=== PATIENT | male | born 1970 | race Caucasian/White ===

== ENCOUNTER 2017-07-06 09:23 | Day surgery (SDC) | payer OTHER ==
[2017-07-06] MEDS ORDERED: BENZOCAINE UNIT DOSE SPRAY HURRICAINE MM ONE (09:25)
[2017-07-06] MEDS ORDERED: MIDAZOLAM 2 MG/2 ML VIAL IVP ONE ×2 (09:25→11:33)
[2017-07-06] MEDS ORDERED: NS 500 ML IV ONE (09:25)
[2017-07-06] MEDS ORDERED: fentaNYL 100 MCG/2 ML INJ IVP ONE (09:25)
[2017-07-06] MEDS ORDERED: MIDAZOLAM 2 MG/2 ML VIAL ONE (09:32)
[2017-07-06] MEDS ORDERED: fentaNYL 100 MCG/2 ML INJ ONE (09:32)
--- NOTE | 2017-07-06 10:46 | PDHPUP ---
History & Physical Update H&P update statement: This history and physical update is based on an assessment of the patient which was completed after admission or registration (within 24 hours), but prior to the surgery/procedure. H&P update: H&P reviewed & patient examined, no change in patient's condition since H&P completed
--- NOTE | 2017-07-06 10:47 | PDPROPOC ---
Sedation Plan of Care Sedation Plan of Care: vital signs stable, mental status noted, patient educated of risks, benefits, alternatives, patient can tolerate sedation ASA Classification: ASA 1 Planned drugs: fentanyl, midazolam Mallampati Score: Class 2 Mallampati Reference Image: Patient passed 3-3-2 rule?: Yes
--- NOTE | 2017-07-06 10:49 | PDGENHP ---
History & Physical Chief Complaint: MR, TR History of Present Illness: 47 yo M with MV repair several years ago now with MR and worsening TR. Needs ARCHIE for further evaluation Pertinent Past, Social, Family History: see outpatient record Relevant Physical Exam: RRR soft early systolic murmur LLSB and apex Cardiorespiratory Assessment: stable
--- NOTE | 2017-07-09 17:26 | ECHO ---
[email or web address] [address] [address] Main: [phone] Fax: Transesophageal Echocardiography Name: ALMAZ CROWLEY MR#: [id number] Study Date: 07/06/2017 Study Time: 10:52 AM Date of : 1970 Age: 47 year(s) Height: ( ) Weight: ( ) BSA: Gender: Male Examination: ARCHIE Indication: Eval mitral and tricuspid valves Image Quality: Contrast: I.V. dose of agitated saline Requested by: Bev Inman Heart Rate: Rhythm: BP: / Procedure Staff Net Manager: Mckenna Senior Physician: Bev Inman Requesting Provider: ARCHIE Exam Details Patient Consent: Risks, alternatives of procedure explained to patient, informed consent obtained. Patient Fasting: yes Contrast: I.V. dose of agitated saline Conclusions: Normal global systolic LV function. Mildly dilated right ventricle. Normal RV function. An agitated saline study was performed and was negative for intracardiac shunting. No thrombus in left appendage. An annuloplasty ring is noted in the mitral valve position. Mobile structure seen associated with the posterior annulus (viewed in previous study) - This measures 0.3 x 0.6 cm. Probable stitch. Moderate MV prosthesis regurgitation. Moderate tricuspid regurgitation is present. The pulmonary artery pressure is normal. Measurements: Chambers Valvular Assessment AV/MV Valvular Assessment TV/PV Normal Normal Normal Name Value Range Name Value Range Name Value Range Additional Measurements: Patient: ALMAZ CROWLEY Study Date: 07/06/2017 Page 1 of 2 10:52 AM Findings: Left Ventricle: Normal global systolic LV function. Right Ventricle: Mildly dilated right ventricle. Normal RV function. Left Atrium: An agitated saline study was performed and was negative for intracardiac shunting. Left Atrial Appendage: No thrombus in left appendage. Mitral Valve: An annuloplasty ring is noted in the mitral valve position. Mobile structure seen associated with the posterior annulus (viewed in previous study) - This measures 0.3 x 0.6 cm. Probable stitch. Moderate MV prosthesis regurgitation. Aortic Valve: The aortic valve is tri-leaflet. Tricuspid Valve: Moderate tricuspid regurgitation is present. The pulmonary artery pressure is normal. l1n (No Signature Object) Patient: ALMAZ CROWLEY Study Date: 07/06/2017 Page 2 of 2 10:52 AM [id number]
== END 2017-07-06 13:00 | disposition home or self-care (01) ==
LOC: FCATH 09:23
PROVIDERS: ATTEND Internal Medicine Cardiovascular Disease
PROC: B245ZZ4 Ultrasonography of Left Heart, Transesophageal (ICD-10-PCS; principal; 2017-07-06)
DX: I08.1 Rheumatic disorders of both mitral and tricuspid valves (principal); I10 Essential (primary) hypertension; Z95.2 Presence of prosthetic heart valve
CPT/HCPCS: J2250; J3010

== ENCOUNTER → 2018-06-10 | Outpatient (CLI) | payer OTHER | LOC: CIMAGING 11:07 | PROVIDERS: ATTEND Internal Medicine | DX: I51.7 Cardiomegaly (principal); Z95.2 Presence of prosthetic heart valve | CPT/HCPCS: 71046-PO ==

== ENCOUNTER 2019-01-29 12:42 | Day surgery (SDC) | payer OTHER ==
[2019-01-29] MEDS ORDERED: NS 500 ML IV ONE (12:46)
[2019-01-29] MEDS ORDERED: fentaNYL 100 MCG/2 ML INJ IVP ONE (12:46)
[2019-01-29] MEDS ORDERED: MIDAZOLAM 2 MG/2 ML VIAL IVP ONE (12:46)
[2019-01-29] MEDS ORDERED: BENZOCAINE UNIT DOSE SPRAY HURRICAINE MM ONE (12:46)
--- NOTE | 2019-01-29 14:49 | POSTANESTH ---
Post Anesthetic Evaluation Cardiovascular Status: Similar to Pre-Op Cond Respiratory Status: Normal, Stable Level of Consciousness/Mental Status: Can Participate in Eval, Alert and Oriented Pain Control: Adequate, Prn Tx Ordered Nausea/Vomiting Control: Adequate, Prn Tx Ordered Complications Possibly Related to Anesthesia: Other, See Comments (Small lac at gumline bottom front tooth from trying to place the bite block after pt removed it while going to sleep. Not actively bleeding.)
--- NOTE | 2019-01-29 14:56 | PDANEPAE ---
ANE History of Present Illness 49 yo male with significant cardiac disease/pathology for ARCHIE. ANE Past Medical History - Cardiovascular History Hx Hypertension: Yes Hx Coronary Artery / Peripheral Vascular Disease: No Hx CHF / Valvular Disease: Yes Cardiovascular History Comment: s/p MV repair now with worsening MR and TR. h/ o CHF - Pulmonary History Hx Oxygen in Use at Home: No Hx Sleep Apnea: No - Neurologic History Hx Cerebrovascular Accident: Yes Neurologic History Comment: 2007 - residual receptive and expressive aphasia that is noticeable to pt, but not to others - Endocrine History Hx Diabetes: No Hypothyroid: No Hyperthyroid: No Obesity: no - Renal History Hx Renal Disorders: No - Liver History Hx Hepatic Disorders: No - Chronic Pain History Chronic Pain: No ANE Review of Systems Review of Systems: ANE Patient History - Allergies Allergies/Adverse Reactions: No Known Allergies Allergy (Unverified 01/08/13 11:28) - Home Medications Home Medications: Concerta 27 mg 27 mg PO DAILY AT 4PM 07/06/17 [Last Taken 01/28/19 14:00] Concerta 54 mg 54 mg PO DAILY 07/06/17 [Last Taken 01/29/19 06:00] Fluoxetine HCl [Prozac 40 mg] 40 mg PO DAILY 07/06/17 [Last Taken 01/29/19 06:00 ] Lovaza 1 gm (*) 07/06/17 [Last Taken Unknown] Propecia 1 mg PO DAILY 07/06/17 [Last Taken 01/29/19 06:00] Warfarin Sodium 2.5 mg PO MWF 07/06/17 [Last Taken 01/29/19 06:00] Metoprolol Succinate 100 mg PO DAILY 01/29/19 [Last Taken 01/29/19 06:00] Wellbutrin Sr PO BID 01/29/19 [Last Taken 01/29/19 06:00] - NPO status NPO Status: no food or drink >8 hours - Anes Hx Hx Anesthesia Complications (with details): crashed under anesthesia in [place] during recent cardiac work - Smoking Hx Smoking Status: Never smoked Marijuana use: No - Alcohol Use Alcohol Use: None - Family Anes Hx Family Anes Hx: neg - N/A ANE Labs/Vital Signs - Labs Result Diagrams: 01/29/19 13:15 - Vital Signs Vital Signs: reviewed preoperatively; see RN documention for details Height: 175 cm Weight: 68 kg ANE Physical Exam - Airway Neck exam: FROM Mallampati Score: Class 2 Mouth exam: normal dental/mouth exam - Pulmonary Pulmonary: clear to auscultation - Cardiovascular Cardiovascular: systolic murmur - ASA Status ASA Status: IV ANE Anesthesia Plan Anesthesia Plan: GA with mask Total IV Anesthesia: Yes
[2019-01-29] MEDS ORDERED: PROPOFOL 200 MG/20 ML VIAL ONE (15:00)
--- NOTE | 2019-01-29 17:01 | ECHO ---
[email or web address] [place] [id number] Main: [phone] Echocardiography Examination Transesophageal Name: ALMAZ CROWLEY MR#: [id number] Study Date: 01/29/2019 Study Time: 02:43 PM Date of : 1970 Age: 49 year(s) Height: ( ) Weight: ( ) BSA: Gender: Male Examination: ARCHIE Contrast: Image Quality: Adequate Rhythm: Heart Rate: BP: / Indication: Evaluate MVR, TVR Procedure Staff Referring Physician: High Density Talc Coater Operator: Comfort Nielson RDCS Reading Physician: Bev Inman MD Requesting Provider: Ordering Physician: Bev Inman MD Indication: Evaluate MVR, TVR Acute complication: None Measurements Chambers AV/MV Label Value Normal Value Label Value Normal Value AV PGmax 5 mmHg AV Vmax 1.1 m/s MV VTI 78.3 cm MV PGmax 20 mmHg MV PGmean 10 mmHg MR PISA Radius 1.8 cm MR PISA Alias V. 36.2 cm/s TV/PV Label Value Normal Value RA Pressure 5 mmHg RVSP 32 mmHg TR Pmax 27 mmHg TR Vmax 2.59 m/s TV PGmax 2 mmHg TV PGmean 2 mmHg TV Vmax 0.76 m/s (0.3m/s - 0.7m/s) TV Vmax, Caliper 0.76 m/s (0.3m/s - 0.7m/s) TV Vmean 0.61 m/s Patient: ALMAZ CROWLEY Study Date: 01/29/2019 Page 1 of 2 02:43 PM TV VTI 18.1 cm Conclusions 1. The left ventricular systolic function is low normal. Ejection fraction is 50-55% without regional wall motion abnormalities. 2. There is no thrombus in left atrial appendage. Bubble study is negative. 3. The mitral valve is status post repair. The posterior leaflet is very truncated. There is incomplete coaptation of anterior and posterior leaflets. There is a very small mobile echodensity near the posterior leaflet. This does not appear to be a vegetation. mean transmitral gradient is 10 mm of mercury. There is severe eccentric mitral regurgitation. 4. The tricuspid valve status post repair. Mean gradient is 2 mm of mercury. There is moderate regurgitation with normal estimated PA systolic pressure, which may be underestimated. Findings Left Ventricle: Low normal left ventricular systolic function. The EF is visually estimated to be 50 %. EF range is estimated at 50 % - 55 %. There are no regional wall motion abnormalities. Left Atrium Appendage: Normal PW-Doppler flow pattern. Good color flow doppler in the left atrial appendage. No thrombus is identified. IAS: An agitated saline study was performed and was negative for intracardiac shunting. Mitral Valve: MR PISA radius 1.8 cm. Mobile echogenicity noted near posterior mitral valve leaflet. Mitral valve repair. Severe MV prosthesis regurgitation. Mitral Valve Measurements MV PGmean is 10 mmHg. Aortic Valve: Aortic leaflets are structurally normal. No significant aortic valve regurgitation. There is no aortic stenosis. Tricuspid Valve: Tricuspid valve repair. Moderate prosthesis regurgitation. Right Ventricular systolic pressure is measured at 32 mmHg. Pulmonary artery pressure normal. Pulmonic Valve: Pulmonic leaflets are structurally normal. No significant pulmonic valve regurgitation is evident. Pericardium: No pericardial effusion. Exam Details Procedure Ordered: ARCHIE Procedure Status: Routine study Image Quality: Adequate Consent: Risks, alternatives of procedure explained to patient, informed consent obtained Probe Insertion: Attending core winder machine operator Facility Location: CVC/Recovery (No Signature Object) Patient: ALMAZ CROWLEY Study Date: 01/29/2019 Page 2 of 2 02:43 PM [id number]
== END 2019-01-29 16:30 | disposition home or self-care (01) ==
LOC: FCATH 12:42
PROVIDERS: ATTEND Internal Medicine Cardiovascular Disease
PROC: B245ZZ4 Ultrasonography of Left Heart, Transesophageal (ICD-10-PCS; principal; 2019-01-29)
DX: I08.0 Rheumatic disorders of both mitral and aortic valves (principal); I50.9 Heart failure, unspecified; I10 Essential (primary) hypertension; Z86.73 Personal history of transient ischemic attack (TIA), and cerebral infarction without residual deficits; Z79.01 Long term (current) use of anticoagulants
CPT/HCPCS: J2704

== ENCOUNTER 2019-02-17 13:13 | Inpatient (IN) | payer OTHER | END 2019-02-20 10:44 | disposition home or self-care (01) | LOC: F2W 13:13 ==

== ENCOUNTER → 2019-03-10 | Outpatient (CLI) | payer OTHER | LOC: FIMAGING 08:31 ==